=== PATIENT | female | born 1960 | race Caucasian/White ===

== ENCOUNTER 2020-05-19 12:21 | Inpatient (IN) | payer OTHER, MEDICAID, SELFPAY ==
[~2020-05-19] VITALS: Ht 154.9 cm; Wt 38.1 kg
[2020-05-19 12:26] VITALS: BP_SYST 100
[2020-05-19] MEDS ORDERED: OLAN7.5T3 PO (12:39)
[2020-05-19] MEDS ORDERED: QUET50TA PO (12:39)
[2020-05-19] MEDS ORDERED: ZOLP5TAB2 PO (12:39)
[2020-05-19] MEDS ORDERED: DOCU-144 PO (12:39)
[2020-05-19] MEDS ORDERED: LORA-258 PO (12:39)
[2020-05-19] MEDS ORDERED: MEMA10TA PO (12:39)
[2020-05-19] MEDS ORDERED: HYDR-4272 PO (12:39)
[2020-05-19] MEDS ORDERED: ACET325T53 PO (12:39)
[2020-05-19] MEDS ORDERED: HALOPERIDOL LACTATE 5 MG/ML VIAL IM ONE (12:45)
[2020-05-19] MEDS ORDERED: LORazepam 2 MG/ML VIAL IM ONE (12:45)
[2020-05-19 13:10] LABS: BASOPHILS # (AUTO) 0.1 K/uL (0.0-0.2); BASOPHILS % (AUTO) 0.5 % (0.0-2.0); EOSINOPHILS # (AUTO) 0.1 K/uL (0.0-0.4); EOSINOPHILS % (AUTO) 0.5 % (0.0-4.0); HEMATOCRIT 40.3 % (36-48); HEMOGLOBIN 13.6 g/dL (12.0-16.0); LYMPHOCYTES # (AUTO) 0.9 K/uL (1.0-5.5); MEAN CORPUSCULAR HEMOGLOBIN 33 pg (27-31); MEAN CORPUSCULAR HGB CONC 34 % (32-36); MEAN CORPUSCULAR VOLUME 98 fL (79.0-98.0); MONOCYTES # (AUTO) 0.5 K/uL (0.0-1.0); MONOCYTES % (AUTO) 3.2 % (1.7-9.3); NEUTROPHILS # (AUTO) 13.4 K/uL (1.8-7.7); NEUTROPHILS % (AUTO) 89.8 % (40.0-70.0); PLATELET COUNT (AUTO) 305 K/uL (130-430); RED CELL DISTRIBUTION WIDTH 13.2 % (9.0-15.0); WHITE BLOOD COUNT (AUTO) 14.9 K/uL (4.8-10.8)
[2020-05-19 13:16] LABS: CALCIUM 8.8 mg/dL (8.4-11.0); CREATININE 0.88 mg/dL (0.55-1.30); POTASSIUM 3.7 mmol/L (3.5-5.1)
[2020-05-19 13:28] LABS: ALBUMIN 3.5 g/dL (3.4-4.8); TOTAL BILIRUBIN 0.3 mg/dL (0.0-1.0)
[2020-05-19] MEDS ORDERED: NACL 0.9% 1,000 ML IV ONE (14:00)
[2020-05-19] MEDS ORDERED: ZOLPIDEM TARTRATE 5 MG TABLET PO PRN (14:30)
[2020-05-19] MEDS ORDERED: MORPHINE 2 MG/ML INJ. SYRINGE IVP PRN ×2 (14:30)
[2020-05-19] MEDS ORDERED: DOCUSATE SODIUM 100 MG CAPSULE PO PRN (14:30)
[2020-05-19] MEDS ORDERED: ONDANSETRON HCL 4 MG/2 ML VIAL IVP PRN (14:30)
[2020-05-19] MEDS ORDERED: ACETAMINOPHEN 325 MG TABLET PO PRN (14:30)
[2020-05-19] MEDS ORDERED: POTASSIUM CHLORIDE 20 MEQ TAB.PRT.SR PO PRN (14:30)
[2020-05-19] MEDS ORDERED: LORazepam 2 MG/ML VIAL IVP PRN (14:30)
[2020-05-19] MEDS ORDERED: MUPIROCIN 2% TOPICAL OINTMENT 22 GM NS PRN (14:30)
[2020-05-19] MEDS ORDERED: MAGNESIUM SULFATE 50 ML IV PRN (14:30)
[2020-05-19 15:00] VITALS: BP_SYST 115
[2020-05-19] MEDS: QUEtiapine FUMARATE 25 MG TABLET PO SCH ×2 (15:00→22:29)
[2020-05-19] MEDS: 0.45% NACL 1,000 ML IV SCH (15:49)
[2020-05-19 20:00] VITALS: BP_SYST 97
[2020-05-19] MEDS: HEPARIN SODIUM,PORCINE 5,000 UNITS/ML VIAL SUBCUT SCH (22:23)
[2020-05-19] MEDS: OLANZapine 2.5 MG TABLET PO SCH (22:30)
[2020-05-20] VITALS (7 sets, daily range): BP systolic 90–121
[2020-05-20] MEDS: 0.45% NACL 1,000 ML IV SCH ×2 (04:58→19:50)
[2020-05-20 07:06] LABS: BASOPHILS # (AUTO) 0.1 K/uL (0.0-0.2); BASOPHILS % (AUTO) 0.8 % (0.0-2.0); EOSINOPHILS # (AUTO) 0.5 K/uL (0.0-0.4); EOSINOPHILS % (AUTO) 5.2 % (0.0-4.0); HEMATOCRIT 39.5 % (36-48); HEMOGLOBIN 13.1 g/dL (12.0-16.0); LYMPHOCYTES # (AUTO) 2.7 K/uL (1.0-5.5); LYMPHOCYTES % (AUTO) 30.3 % (20.5-51.5); MEAN CORPUSCULAR HEMOGLOBIN 33 pg (27-31); MEAN CORPUSCULAR HGB CONC 33 % (32-36); MEAN CORPUSCULAR VOLUME 100 fL (79.0-98.0); MONOCYTES # (AUTO) 0.7 K/uL (0.0-1.0); MONOCYTES % (AUTO) 7.4 % (1.7-9.3); NEUTROPHILS % (AUTO) 56.3 % (40.0-70.0); PLATELET COUNT (AUTO) 245 K/uL (130-430); RED BLOOD CELL COUNT(AUTO) 3.94 MIL/uL (4.2-6.2); RED CELL DISTRIBUTION WIDTH 13.3 % (9.0-15.0); WHITE BLOOD COUNT (AUTO) 8.9 K/uL (4.8-10.8)
[2020-05-20 07:39] LABS: CALCIUM 8.7 mg/dL (8.4-11.0); CREATININE 0.68 mg/dL (0.55-1.30); POTASSIUM 3.5 mmol/L (3.5-5.1)
[2020-05-20] MEDS ORDERED: DIVALPROEX SODIUM 125 MG CAP.(DEPAKOTE SPRINKLE) PO SCH (09:00)
[2020-05-20] MEDS: HEPARIN SODIUM,PORCINE 5,000 UNITS/ML VIAL SUBCUT SCH ×2 (09:00→22:04)
[2020-05-20] MEDS: OLANZapine 2.5 MG TABLET PO SCH ×2 (09:17→21:51)
[2020-05-20] MEDS: QUEtiapine FUMARATE 25 MG TABLET PO SCH ×3 (09:17→21:50)
[2020-05-20] MEDS: DIVALPROEX SODIUM 500 MG TABLET( DEPAKOTE) PO SCH (21:50)
[2020-05-21] VITALS: BP_SYST 98
[2020-05-21 06:22] LABS: BASOPHILS % (AUTO) 0.2 % (0.0-2.0); EOSINOPHILS # (AUTO) 0.6 K/uL (0.0-0.4); EOSINOPHILS % (AUTO) 7.4 % (0.0-4.0); HEMATOCRIT 37.1 % (36-48); HEMOGLOBIN 12.7 g/dL (12.0-16.0); LYMPHOCYTES # (AUTO) 2.7 K/uL (1.0-5.5); MEAN CORPUSCULAR HEMOGLOBIN 33 pg (27-31); MEAN CORPUSCULAR HGB CONC 34 % (32-36); MEAN CORPUSCULAR VOLUME 98 fL (79.0-98.0); MONOCYTES # (AUTO) 0.4 K/uL (0.0-1.0); MONOCYTES % (AUTO) 5.8 % (1.7-9.3); NEUTROPHILS # (AUTO) 3.8 K/uL (1.8-7.7); NEUTROPHILS % (AUTO) 50.6 % (40.0-70.0); PLATELET COUNT (AUTO) 233 K/uL (130-430); RED BLOOD CELL COUNT(AUTO) 3.78 MIL/uL (4.2-6.2); RED CELL DISTRIBUTION WIDTH 12.8 % (9.0-15.0); WHITE BLOOD COUNT (AUTO) 7.6 K/uL (4.8-10.8)
[2020-05-21 06:47] LABS: CALCIUM 8.4 mg/dL (8.4-11.0); CREATININE 0.54 mg/dL (0.55-1.30); POTASSIUM 3.3 mmol/L (3.5-5.1)
[2020-05-21 08:00] VITALS: BP_SYST 105
[2020-05-21] MEDS: DIVALPROEX SODIUM 500 MG TABLET( DEPAKOTE) PO SCH ×2 (09:36→21:01)
[2020-05-21] MEDS: OLANZapine 2.5 MG TABLET PO SCH ×2 (09:36→21:01)
[2020-05-21] MEDS: QUEtiapine FUMARATE 25 MG TABLET PO SCH ×3 (09:36→21:00)
[2020-05-21] MEDS: NYSTATIN 30 GM TOPICAL CREAM TP SCH ×2 (09:40→21:18)
[2020-05-21] MEDS: HEPARIN SODIUM,PORCINE 5,000 UNITS/ML VIAL SUBCUT SCH ×2 (09:42→21:08)
[2020-05-21] MEDS: 0.45% NACL 1,000 ML IV SCH (09:46)
[2020-05-21 12:10] VITALS: BP_SYST 115
[2020-05-21 20:00] VITALS: BP_SYST 124
[2020-05-22] VITALS: BP_SYST 119
[2020-05-22] MEDS: 0.45% NACL 1,000 ML IV SCH ×2 (01:55→16:03)
[2020-05-22 06:32] LABS: BASOPHILS % (AUTO) 0.6 % (0.0-2.0); EOSINOPHILS # (AUTO) 0.5 K/uL (0.0-0.4); EOSINOPHILS % (AUTO) 6.4 % (0.0-4.0); HEMATOCRIT 39.8 % (36-48); HEMOGLOBIN 13.6 g/dL (12.0-16.0); LYMPHOCYTES # (AUTO) 2.4 K/uL (1.0-5.5); MEAN CORPUSCULAR HEMOGLOBIN 33 pg (27-31); MEAN CORPUSCULAR HGB CONC 34 % (32-36); MEAN CORPUSCULAR VOLUME 97 fL (79.0-98.0); MONOCYTES # (AUTO) 0.6 K/uL (0.0-1.0); MONOCYTES % (AUTO) 6.9 % (1.7-9.3); NEUTROPHILS # (AUTO) 4.5 K/uL (1.8-7.7); NEUTROPHILS % (AUTO) 56.1 % (40.0-70.0); PLATELET COUNT (AUTO) 254 K/uL (130-430); RED CELL DISTRIBUTION WIDTH 12.9 % (9.0-15.0); WHITE BLOOD COUNT (AUTO) 7.9 K/uL (4.8-10.8)
[2020-05-22 07:06] LABS: CALCIUM 8.6 mg/dL (8.4-11.0); CREATININE 0.52 mg/dL (0.55-1.30); POTASSIUM 3.7 mmol/L (3.5-5.1)
[2020-05-22 08:00] VITALS: BP_SYST 105
[2020-05-22] MEDS: DIVALPROEX SODIUM 500 MG TABLET( DEPAKOTE) PO SCH ×2 (08:57→21:40)
[2020-05-22] MEDS: QUEtiapine FUMARATE 25 MG TABLET PO SCH ×3 (08:57→21:40)
[2020-05-22] MEDS: NYSTATIN 30 GM TOPICAL CREAM TP SCH ×2 (08:58→21:44)
[2020-05-22] MEDS: HEPARIN SODIUM,PORCINE 5,000 UNITS/ML VIAL SUBCUT SCH ×2 (09:01→21:49)
[2020-05-22] MEDS: OLANZapine 2.5 MG TABLET PO SCH ×2 (09:16→21:40)
[2020-05-22 12:12] VITALS: BP_SYST 100
[2020-05-22 16:29] VITALS: BP_SYST 113
[2020-05-22 20:00] VITALS: BP_SYST 114
[2020-05-23 04:00] VITALS: BP_SYST 110
[2020-05-23] MEDS: 0.45% NACL 1,000 ML IV SCH ×2 (04:23→15:52)
[2020-05-23 06:25] LABS: BASOPHILS % (AUTO) 0.2 % (0.0-2.0); EOSINOPHILS # (AUTO) 0.6 K/uL (0.0-0.4); EOSINOPHILS % (AUTO) 7.3 % (0.0-4.0); HEMATOCRIT 42.1 % (36-48); HEMOGLOBIN 14.2 g/dL (12.0-16.0); LYMPHOCYTES # (AUTO) 2.6 K/uL (1.0-5.5); LYMPHOCYTES % (AUTO) 32.6 % (20.5-51.5); MEAN CORPUSCULAR HEMOGLOBIN 33 pg (27-31); MEAN CORPUSCULAR HGB CONC 34 % (32-36); MEAN CORPUSCULAR VOLUME 99 fL (79.0-98.0); MONOCYTES # (AUTO) 0.6 K/uL (0.0-1.0); MONOCYTES % (AUTO) 6.9 % (1.7-9.3); NEUTROPHILS # (AUTO) 4.2 K/uL (1.8-7.7); PLATELET COUNT (AUTO) 258 K/uL (130-430); RED BLOOD CELL COUNT(AUTO) 4.27 MIL/uL (4.2-6.2)
[2020-05-23 08:00] VITALS: BP_SYST 130
[2020-05-23] MEDS: DIVALPROEX SODIUM 500 MG TABLET( DEPAKOTE) PO SCH ×2 (08:20→20:26)
[2020-05-23] MEDS: OLANZapine 2.5 MG TABLET PO SCH ×2 (08:21→20:26)
[2020-05-23] MEDS: QUEtiapine FUMARATE 25 MG TABLET PO SCH ×3 (08:21→20:26)
[2020-05-23] MEDS: NYSTATIN 30 GM TOPICAL CREAM TP SCH ×2 (08:25→20:27)
[2020-05-23] MEDS: HEPARIN SODIUM,PORCINE 5,000 UNITS/ML VIAL SUBCUT SCH ×2 (08:25→20:31)
[2020-05-23 10:43] LABS: CALCIUM 8.7 mg/dL (8.4-11.0); CREATININE 0.6 mg/dL (0.55-1.30); POTASSIUM 4.1 mmol/L (3.5-5.1)
[2020-05-23 13:15] VITALS: BP_SYST 125
[2020-05-23 18:19] VITALS: BP_SYST 106
[2020-05-23 20:30] VITALS: BP_SYST 106
[2020-05-24] VITALS: BP_SYST 110
[2020-05-24] MEDS: 0.45% NACL 1,000 ML IV SCH ×2 (06:17→22:09)
[2020-05-24 06:22] LABS: BASOPHILS % (AUTO) 0.4 % (0.0-2.0); EOSINOPHILS # (AUTO) 0.7 K/uL (0.0-0.4); EOSINOPHILS % (AUTO) 8.8 % (0.0-4.0); HEMATOCRIT 41.1 % (36-48); LYMPHOCYTES # (AUTO) 3.1 K/uL (1.0-5.5); LYMPHOCYTES % (AUTO) 40.1 % (20.5-51.5); MEAN CORPUSCULAR HEMOGLOBIN 33 pg (27-31); MEAN CORPUSCULAR HGB CONC 34 % (32-36); MEAN CORPUSCULAR VOLUME 98 fL (79.0-98.0); MONOCYTES # (AUTO) 0.5 K/uL (0.0-1.0); MONOCYTES % (AUTO) 6.8 % (1.7-9.3); NEUTROPHILS # (AUTO) 3.4 K/uL (1.8-7.7); NEUTROPHILS % (AUTO) 43.9 % (40.0-70.0); PLATELET COUNT (AUTO) 239 K/uL (130-430); RED BLOOD CELL COUNT(AUTO) 4.18 MIL/uL (4.2-6.2); WHITE BLOOD COUNT (AUTO) 7.7 K/uL (4.8-10.8)
[2020-05-24 07:45] VITALS: BP_SYST 91
[2020-05-24 08:29] LABS: POTASSIUM 4.3 mmol/L (3.5-5.1)
[2020-05-24 08:30] LABS: CALCIUM 8.6 mg/dL (8.4-11.0); CREATININE 0.6 mg/dL (0.55-1.30)
[2020-05-24] MEDS: DIVALPROEX SODIUM 500 MG TABLET( DEPAKOTE) PO SCH ×2 (09:16→21:08)
[2020-05-24] MEDS: QUEtiapine FUMARATE 25 MG TABLET PO SCH ×3 (09:16→21:08)
[2020-05-24] MEDS: OLANZapine 2.5 MG TABLET PO SCH ×2 (09:16→21:08)
[2020-05-24] MEDS: HEPARIN SODIUM,PORCINE 5,000 UNITS/ML VIAL SUBCUT SCH ×2 (09:18→21:12)
[2020-05-24] MEDS: NYSTATIN 30 GM TOPICAL CREAM TP SCH ×2 (09:24→21:09)
[2020-05-24 12:00] VITALS: BP_SYST 147
[2020-05-24 17:16] VITALS: BP_SYST 140
[2020-05-24 20:30] VITALS: BP_SYST 152
[2020-05-25 00:04] VITALS: BP_SYST 152
[2020-05-25 08:00] VITALS: BP_SYST 118
[2020-05-25] MEDS: OLANZapine 2.5 MG TABLET PO SCH ×2 (09:45→21:00)
[2020-05-25] MEDS: DIVALPROEX SODIUM 500 MG TABLET( DEPAKOTE) PO SCH (09:45)
[2020-05-25] MEDS: QUEtiapine FUMARATE 25 MG TABLET PO SCH ×3 (09:45→21:00)
[2020-05-25] MEDS: HEPARIN SODIUM,PORCINE 5,000 UNITS/ML VIAL SUBCUT SCH ×2 (09:47→22:14)
[2020-05-25] MEDS: NYSTATIN 30 GM TOPICAL CREAM TP SCH ×2 (09:48→22:13)
[2020-05-25 11:30] VITALS: BP_SYST 100
[2020-05-25] MEDS: 0.45% NACL 1,000 ML IV SCH (12:46)
[2020-05-25 15:31] VITALS: BP_SYST 91
[2020-05-25 19:00] VITALS: BP_SYST 114
[2020-05-25 20:00] VITALS: BP_SYST 114
[2020-05-25] MEDS: DIVALPROEX SODIUM 250 MG TABLET(DEPAKOTE) PO SCH (21:00)
[2020-05-26] VITALS: BP_SYST 94
[2020-05-26] MEDS: 0.45% NACL 1,000 ML IV SCH ×2 (04:18→14:56)
[2020-05-26 07:45] VITALS: BP_SYST 124
[2020-05-26] MEDS: OLANZapine 2.5 MG TABLET PO SCH ×2 (09:02→22:04)
[2020-05-26] MEDS: QUEtiapine FUMARATE 25 MG TABLET PO SCH ×3 (09:02→22:04)
[2020-05-26] MEDS: DIVALPROEX SODIUM 250 MG TABLET(DEPAKOTE) PO SCH ×2 (09:03→22:04)
[2020-05-26] MEDS: HEPARIN SODIUM,PORCINE 5,000 UNITS/ML VIAL SUBCUT SCH ×2 (09:06→22:06)
[2020-05-26] MEDS: NYSTATIN 30 GM TOPICAL CREAM TP SCH ×2 (09:07→22:06)
[2020-05-26 12:25] VITALS: BP_SYST 111
[2020-05-26] MEDS ORDERED: LORazepam 2 MG/ML VIAL ONE (16:00)
[2020-05-26 16:15] VITALS: BP_SYST 135
[2020-05-26] MEDS ORDERED: LORazepam 2 MG/ML VIAL IVP ONE (16:15)
[2020-05-26] MEDS ORDERED: LORazepam 2 MG/ML VIAL IV PRN (16:30)
[2020-05-26 20:00] VITALS: BP_SYST 130
[2020-05-27 01:16] VITALS: BP_SYST 90
[2020-05-27] MEDS: 0.45% NACL 1,000 ML IV SCH (05:05)
[2020-05-27 08:00] VITALS: BP_SYST 87
[2020-05-27] MEDS: NYSTATIN 30 GM TOPICAL CREAM TP SCH (09:00)
[2020-05-27] MEDS ORDERED: levETIRAcetam 500 MG TABLET PO ONE (09:00)
[2020-05-27] MEDS: OLANZapine 2.5 MG TABLET PO SCH (10:25)
[2020-05-27] MEDS: DIVALPROEX SODIUM 250 MG TABLET(DEPAKOTE) PO SCH (10:25)
[2020-05-27] MEDS: QUEtiapine FUMARATE 25 MG TABLET PO SCH ×2 (10:25→15:07)
[2020-05-27] MEDS: HEPARIN SODIUM,PORCINE 5,000 UNITS/ML VIAL SUBCUT SCH (10:29)
[2020-05-27 12:34] VITALS: BP_SYST 133
[2020-05-27 16:44] VITALS: BP_SYST 98
[2020-05-27 20:01] VITALS: BP_SYST 142
[2020-05-27] MEDS ORDERED: levETIRAcetam 500 MG TABLET PO SCH (21:00)
== END 2020-05-27 20:30 | DRG 101 ==
LOC: SED 12:21 → STU 14:18 → SMU 05-25 16:26
PROVIDERS: ADMIT General Practice; ATTEND General Practice
DX: G40.909 Epilepsy, unspecified, not intractable, without status epilepticus (principal); Z68.1 Body mass index [BMI] 19.9 or less, adult; E87.0 Hyperosmolality and hypernatremia; F39 Unspecified mood [affective] disorder; E86.0 Dehydration; D72.829 Elevated white blood cell count, unspecified; G30.9 Alzheimer's disease, unspecified; R62.7 Adult failure to thrive; Z20.828 Contact with and (suspected) exposure to other viral communicable diseases; E86.1 Hypovolemia; B37.9 Candidiasis, unspecified; Z79.899 Other long term (current) drug therapy
CPT/HCPCS: 36415; 70450-TC; 71045; 80048; 80053; 80164-TC; 83036; 83735-TC; 85025; 85730-TC; 87081; 95816; 96360; 96372; 97163; 99291; G0378; J1630; J1644; J2060; J7030; U0003-CS